=== PATIENT | female | born 1945 | race Caucasian/White ===

== ENCOUNTER 2020-02-15 09:43 | Outpatient (CLI) | payer MEDICARE, OTHER, SELFPAY ==
--- NOTE | 2020-02-15 09:56 | MM_ITS ---
WS: [id number] BILATERAL DIGITAL SCREENING MAMMOGRAPHY WITH CAD CLINICAL INFORMATION: SCREENING HISTORY: Screening mammogram. No current complaints. COMPARISON: None. TECHNIQUE: Bilateral CC and MLO views. FINDINGS: Scattered fibroglandular densities bilaterally. Increasing asymmetric density measuring 6 mm inferior left breast best seen on the MLO view. RECOMMEND SPOT COMPRESSION VIEWS AND ULTRASOUND LEFT BREAST MM/[place] [id number] IMPRESSION: BI-RADS: 0-Incomplete: Need additional imaging evaluation FOLLOW UP: Need Additional Imaging
== END 2020-02-15 09:44 | disposition home or self-care (01) ==
LOC: RADSHAW 09:49
PROVIDERS: PCP Internal Medicine; Visit Provider Internal Medicine
DX: Z12.31 Encounter for screening mammogram for malignant neoplasm of breast (principal); N64.89 Other specified disorders of breast
CPT/HCPCS: 77067

== ENCOUNTER 2020-03-13 10:19 | Outpatient (CLI) | payer MEDICARE, OTHER, SELFPAY ==
--- NOTE | 2020-03-13 10:27 | MM_ITS ---
WS: [id number] LEFT DIGITAL MAMMOGRAPHY WITH CAD CLINICAL INFORMATION: ABNORMAL MAMMOGRAM COMPARISON: February 15, 2020 TECHNIQUE: 3 views of the left breast were obtained. FINDINGS: Scattered fibroglandular densities of the left breast. Previously described 6 mm asymmetric density r esolves today on the spot compression views. No other suspicious findings. Recommend return to screen ing mammography. MM/[place] [id number] IMPRESSION: BI-RADS: 2-Benign FOLLOW UP: 1 Year Follow-up Recommend return to annual screening mammography.
== END 2020-03-13 10:20 | disposition home or self-care (01) ==
LOC: RADSHAW 10:23
PROVIDERS: PCP Internal Medicine; Visit Provider Nurse Practitioner Family
DX: R92.8 Other abnormal and inconclusive findings on diagnostic imaging of breast (principal)
CPT/HCPCS: 77065

== ENCOUNTER → 2020-12-19 10:13 | Outpatient (BNVA) | payer MEDICARE, OTHER, SELFPAY | PROVIDERS: PCP Internal Medicine; Visit Provider Surgery | DX: Z01.812 Encounter for preprocedural laboratory examination (principal); Z20.822 Contact with and (suspected) exposure to COVID-19 | CPT/HCPCS: 87635 ==

== ENCOUNTER 2020-12-25 09:24 | Day surgery (SDC) | payer MEDICARE, OTHER, SELFPAY ==
--- NOTE | 2020-12-25 09:45 | ANES.PREANE2 ---
Pre-Anesthetic Assessment Pre-Anesthetic Assessment: Height/Weight: Height 1.55 m Weight 81.647 kg Preop Diagnosis: screening colonoscopy Proposed Procedure: Operation Date: 12/25/20 11:00 Proposed Procedures p Colonoscopy 05307 Z12.11(Not Applicable) - Umang Sutton MD Was Beta Melva taken within 24 hours: Yes Was Clonidine taken within 24 hours: N/A Social: Social History: No alcohol and No tobacco Exam: Pre-Anes Outpt Exam: alert, oriented x 3, clear to auscultation bilaterally and regular rate & rhythm Airway: Submandibular: WNL Cervical ROM: WNL MP: 1 Pulmonary: Pulmonary: None reported CV/HEM: CV/HEM: HTN : : None reported Hepatic: Hepatic: None reported GI: GI: None reported Metabolic: Metabolic: DM Musc/skel: Musc/skel: None reported Neuropsych: Neuropsych: None reported Anesthetic Plan: ASA status: 3 Anesthesia: MAC PFSH Anesthesia PFSH: Medical History Diabetes HTN (hypertension), benign Surgical History History of 2 sections History of appendectomy History of open reduction and internal fixation (ORIF) procedure Right ankle History of tonsillectomy Status post colonoscopy Family History Mother Hyperlipidemia Denies family history of Diabetes CAD (coronary artery disease) Clotting disorder Dementia Psychiatric illness Chronic kidney disease (CKD) Suicide Anesthesia complication Bleeding disorder Family history of premature coronary artery disease Lung disease Cancer Hypertension Stroke Social History Smoking and tobacco status: never smoked Second hand smoke exposure: No Alcohol intake: never Data Anesthesia Cardiac Studies: No Data to Display
[2020-12-25 10:14] VITALS: BP 148/72; PULSE 78; RESP 18; TEMP 36.7; O2SAT 98
[2020-12-25] MEDS: sodium chloride 0.9% 1,000 ML 30 ML IV (10:28)
[2020-12-25 10:35] LABS: Glucose Point of Care 151 mg/dL (70-110)
--- NOTE | 2020-12-25 10:36 | W.PM.OPSUD ---
Surgery/Procedure H&P Update DATE OF PROCEDURE: December 25, 2020 DATE H&P PERFORMED: 12/02/20 H&P UPDATE INFORMATION: I have reviewed H&P completed within last 30 days, I have examined patient prior to procedure and No changes to prior documentation PREOP DIAGNOSIS: screening colonoscopy PLANNED PROCEDURE: Operation Date: 12/25/20 11:00 Proposed Procedures p Colonoscopy 33887 Z12.11(Not Applicable) - Umang Sutton MD
[2020-12-25 12:24] VITALS: BP 132/66; PULSE 73; RESP 12; TEMP 36.1; O2SAT 96
--- NOTE | 2020-12-25 12:28 | ANE.PACU2 ---
Inpatient post-anesthesia follow up: Airway intact: Yes Vital signs: Temperature 98.1 F Pulse Rate 78 Respiratory Rate 18 Blood Pressure 148/72 Pulse Oximetry 98 Oxygen Delivery Me thod Room Air Oxygen Flow Rate Fraction of Inspir ed Oxygen Hydration adequate: Yes Nausea and vomiting: No Pain level: 1 Mental status: Baseline
[2020-12-25 12:37] VITALS: BP 138/65; PULSE 76; RESP 18; O2SAT 95
== END 2020-12-25 13:07 | disposition home or self-care (01) ==
PROVIDERS: PCP Internal Medicine; Visit Provider Surgery
PROC: 0DJD8ZZ Inspection of Lower Intestinal Tract, Via Natural or Artificial Opening Endoscopic (ICD-10-PCS; CPT 45378; principal; 2020-12-25 11:00)
DX: Z12.11 Encounter for screening for malignant neoplasm of colon (principal); K64.8 Other hemorrhoids; I10 Essential (primary) hypertension; E11.9 Type 2 diabetes mellitus without complications; Z79.4 Long term (current) use of insulin
CPT/HCPCS: 36416; 82962; 96360; 96361; G0121; J2704; J7030

== ENCOUNTER 2021-01-29 10:49 | Outpatient (CLI) | payer MEDICARE, OTHER, SELFPAY ==
[2021-01-29 11:19] LABS: Hematocrit 28.8 % (37.0-47.0); Hemoglobin 7.8 g/dL (11.5-15.3); Mean Corpuscular HGB Conc 27.1 g/dL (30.0-36.0); Mean Corpuscular Hemoglobin 18.4 pg (28.0-34.0); Mean Corpuscular Volume 68.1 fL (81-99); Mean Platelet Volume 9.5 fL (7.4-10.4); Platelet Count 196 10^3/cmm (130-400); Red Blood Count 4.23 10^6/uL (4.1-5.3); Red Cell Distribution Width 19.5 % (12.1-15.1); Reticulocyte % 1.4 % (0.5-2.0)
[2021-01-29 11:42] LABS: Lactate Dehydrogenase 268 U/L (135-214)
[2021-01-29 12:06] LABS: Absolute Eosinophils 0.1 10^3/cmm (0.0-0.7); Absolute Segmented Neutrophil 2.8 10/cmm (1.6-7.1); Band Neutrophils Absolute 0.2 10^3/cmm (0.0-1.2); Eosinophils 3 %; Lymphocytes 17 %; Lymphocytes Absolute 0.7 10^3/cmm (1.2-3.4); Monocytes Absolute 0.2 10^3/cmm (0.1-0.6); Platelet Estimate Decreased (Normal); Segmented Neutrophils 69 %; Total Cells Counted 100 (0-100)
[2021-01-30 10:31] LABS: LAB Peripheral Smear Sent for Review
[2021-01-31 14:32] LABS: Anti-Nuclear Antibody Screen POSITIVE (NEGATIVE)
== END 2021-01-29 10:50 | disposition home or self-care (01) ==
PROVIDERS: PCP Internal Medicine; Visit Provider Internal Medicine
DX: D64.9 Anemia, unspecified (principal)
CPT/HCPCS: 83010; 83615; 85007; 85027; 85045; 86038

== ENCOUNTER 2021-02-12 11:25 | Outpatient (CLI) | payer MEDICARE, OTHER, SELFPAY ==
--- NOTE | 2021-02-12 11:33 | CT_ITS ---
WS: [id number] CT ABDOMEN PELVIS TECHNIQUE: Contrast-enhanced CT of the abdomen and pelvis with coronal and sagittal reformatted image s. CLINICAL INFORMATION: EPIGASTRIC ABDOMINAL PAIN COMPARISON: CT 12 2014 DLP: 1228.[address] scans at [facility] use at least one of these dose optimization techniques: automat ed exposure control; mA and/or kV adjustment per patient size (includes targeted exams where dose is matched to clinical indication); or iterative reconstruction. FINDINGS: Cirrhotic configuration to the liver. Splenomegaly. Spleen measures 14.6 cm [id number]. Enhancing e xophytic lesion anterior aspect of the spleen measuring 2.6 x 2.2 cm increased since 2015 where it me asured 1.9 x 1.4 CM. Mild to moderate abdominal ascites with perihepatic and perisplenic ascites. Mod erate ascites in the pelvis. Mesenteric edema. Diffuse gallbladder wall thickening likely due to cirr hosis. Moderate left pleural effusion with compressive atelectasis left lower lobe. Associated patchy infilt rates in the left lower lobe. Recommend correlation for pneumonia. Right lower lobe is well aerated. Markedly prominent and numerous periesophageal and gastroesophageal varices. This is progressed since 2015. Gastrosplenic varices. Portal vein and splenic vein are patent. Small esophageal hiatal hernia. No evidence of high-grade small or large bowel obstruction. Normal si gmoid colon. Mild fatty atrophy of the pancreas. Adrenal glands are normal. Normal renal parenchymal enhancement. No hydronephrosis. Tiny left renal cysts. Normal caliber abdominal aorta. No aneurysm. D iffuse body wall anasarca. Tiny fat-containing umbilical hernia. Abdominal wall varices. No abdominal or pelvic lymphadenopathy. No inguinal lymphadenopathy. Normal lumbar spine. CT/CT abdomen pelvis w con* [id number] IMPRESSION: 1. Cirrhotic liver with splenomegaly and evidence of portal venous hypertensio n with varices. 2. Tortuous and markedly prominent paraesophageal, retrocrural, gastroesophage al, and gastrosplenic varices. Small esophageal hiatal hernia. 3. Enhancing exophytic lesion in the anterior aspect of the spleen measuring 2 .6 x 2.2 cm described above increased in size since 2014. This may represent pr ominent hemangioma but nonspecific and a solid lesion is not excluded. This can be further evaluated with ultrasound. 4. Mild to moderate abdominal and pelvic ascites with perisplenic and perihepa tic fluid. 5. Moderate left pleural effusion with patchy infiltrates left lower lobe and compressive atelectasis.Correlation for pneumonia. 6. Normal caliber abdominal aorta. 7. Diffuse body wall anasarca.
[2021-02-12] MEDS: iohexol 300 mg/mL 50 mL Btl PO (11:57)
[2021-02-12] MEDS: iohexol 300 mg/mL 100 mL Btl IV (13:44)
== END 2021-02-12 11:26 | disposition home or self-care (01) ==
LOC: RADWPI 11:25
PROVIDERS: PCP Internal Medicine; Visit Provider Internal Medicine
DX: R10.13 Epigastric pain (principal); J90 Pleural effusion, not elsewhere classified; R18.8 Other ascites; K74.60 Unspecified cirrhosis of liver; R16.1 Splenomegaly, not elsewhere classified
CPT/HCPCS: 74177; Q9967

== ENCOUNTER 2021-02-17 13:49 | Outpatient (CLI) | payer MEDICARE, OTHER, SELFPAY ==
[2021-02-17 16:29] LABS: Basophils # 0.1 10^3/uL (0.0-0.1); Basophils % 1.4 %; Eosinophils # 0.2 10^3/uL (0.0-0.8); Eosinophils % 4.8 %; Hematocrit 30.3 % (37.0-47.0); Lymphocytes # 0.8 10^3/uL (0.8-4.8); Lymphocytes % 19.6 %; Mean Corpuscular HGB Conc 26.4 g/dL (30.0-36.0); Mean Corpuscular Hemoglobin 18.1 pg (28.0-34.0); Mean Corpuscular Volume 68.7 fL (81-99); Monocytes # 0.4 10^3/uL (0.2-0.9); Monocytes % 9.9 %; Neutrophils # 2.65 10^3/uL (1.8-7.7); Neutrophils % 64.1 %; Nucleated Red Blood Cells % 0 %; Platelet Count 185 10^3/cmm (130-400); Positive M 1; Red Blood Count 4.41 10^6/uL (4.1-5.3); Red Cell Distribution Width 21.7 % (12.1-15.1); White Blood Count 4.1 10^3/uL (4.0-10.0)
[2021-02-17 16:43] LABS: INR 1.08 (0.8-1.2)
[2021-02-17 16:50] LABS: Alanine Aminotransferase 10 U/L (0-33); Albumin Level 3.4 g/dL (3.5-5.2); Alkaline Phosphatase 76 IU/L (35-105); Aspartate Amino Transferase 32 U/L (0-32); Blood Urea Nitrogen 8 mg/dL (8-23); Calcium 8.5 mg/dL (8.5-10.5); Carbon Dioxide 21 mmol/L (22-29); Chloride 101 mmol/L (98-107); Ferritin 9 ng/mL (15-150); Globulin 3.2 g/dL (1.3-4.6); Glucose 164 mg/dL (65-115); Iron 17 ug/dL (37-145); Osmolality Calculated 282 mOsm/kg (285-295); Sodium 135 mmol/L (136-145); Total Bilirubin 0.9 mg/dL (0.15-1.2); Total Iron Binding Capacity 424 mcg/dl; Total Protein 6.6 g/dL (6.6-8.7); Unsaturated Iron Binding 407 ug/dL (112-347)
[2021-02-17 16:51] LABS: Anion Gap 16.8 (5-19); Potassium 3.8 mmol/L (3.5-5.1)
--- NOTE | 2021-02-17 17:11 | ONC CON_ITS ---
Dr. Soria New Patient Note Patient: Sammie Cr Unit #: [id number]: [id number] Dicatated By: Vamshi Soria M.D.Date of Visit: Feb 17, 2021 Onc MED New Patient/Consult Referring Physician: Dr. MAC BENNETT M.D. Chief Complaint: Anemia. History of Present Illness: This is a 76-year-old woman with iron deficiency anemia. She has hypertension, hyperlipidemia, type 2 diabetes, and hypothyroidism. She sees Dr. Bennett for primary care. In November she had been referred to Dr. Sutton due to complaints of persistent diarrhea. Her hemoglobin had dropped from 14 to 11 g. She was found to have heme positive stool. Her colonoscopy on 12/25/2020 showed no abnormalities. Her repeat CBC on 01/28/2021 showed further decrease in hemoglobin to 7.3 g with hematocrit 27.1%. The red cell indices were hypochromic/microcytic. Her comprehensive metabolic profile showed slightly elevated total bilirubin at 1.3 mg/dL. The liver enzymes were normal. Her repeat CBC on 02/03/2021 continue to show significant anemia with hemoglobin 7.7 g despite oral iron supplementation with ferrous sulfate. CT of the abdomen/pelvis on 02/12/2021 showed evidence of liver cirrhosis with associated splenomegaly and with associated periesophageal and gastroesophageal varices, progressed compared to previous study in 2015. There was mild to moderate abdominal ascites and moderate ascites in the pelvis. There was moderate left pleural effusion with compressive atelectasis of the left lower lobe. An enhancing exophytic lesion in the anterior aspect of the spleen measuring 2.6 x 2.2 cm was noted to have increased since 2015. She complained that she is very tired. She has limited activity. ECOG score is 2. Her appetite has not been good. She says she does not eat near which she used to. She has had weight loss in the range of 30 pounds. She does not have fever or night sweats. She has been having shortness of breath and she has nonproductive cough. She does not complain of chest pain. She has not been having nausea or abdominal pain she has no obvious acid reflux symptoms. She does have loose stools, and she complains that she cannot tell when she is going to have a bowel movement. She has not been aware of any blood in the stool. She has no complaints. She has no significant joint or bone pain. She does not complain of headache or dizziness. She does have some numbness/tingling in her toes. Past Medical History: Her medical history includes hyperlipidemia, hypertension, hypothyroidism, and type II diabetes. Past Surgical History: She had a colonoscopy on 12/25/2020. Her other surgical/procedural history includes appendectomy, section x 2, ORIF for right ankle fracture, and tonsillectomy. Medications: amLODIPine Besylate (5 mg) Tablet Oral daily, Benazepril HCl (40 mg) Tablet Oral daily, Euthyrox (125 mcg) Tablet Oral daily, Insulin Detemir 40 (100 Units/mL) Subcutaneous b.i.d., metFORMIN HCl (1000 mg) Tablet Oral b.i.d., Metoprolol Tartrate (25 mg) Tablet Oral daily Allergies: Adhesive Tape, Aspirin, and Penicillins. Social History: Ms. Cr is . She is a non-smoker. She does not drink alcohol. Family History: Father of heart attack at age 51. Mother is still living at age 98. She has 2 sisters, one of whom has Parkinson's disease. The other is in good health. Review Of Symptoms: Constitutional - She has been feeling very tired. She has limited activity. Her appetite is not been good. She has had gradual weight loss, which now is in excess of 30 pounds. She does not have fever or night sweats. ECOG score is 2, Eyes - No change in vision, ENMT - No hearing loss or tinnitus. No sinus congestion/drainage. No mouth sores. No sore throat or difficulty swallowing, Hematologic/Lymphatic - She bruises very easily, Respiratory - She has some shortness of breath. She has nonproductive cough. No pleuritic pain or hemoptysis, Cardiovascular - No angina pain. No palpitations, Gastrointestinal - No nausea or vomiting. No heartburn or acid reflux. She has had loose stools and recently she has been unable to tell when her bowels are going to move. She has not been aware of any blood in the stool, Genitourinary (F) - No dysuria or hematuria. No urinary frequency. No urgency or incontinence, Musculoskeletal - No significant joint or bone pain, Integumentary - No skin rash or other skin changes, Neurologic - No headache or dizziness. She has numbness/tingling in her toes. No other focal neurologic symptoms, Psychiatric - No anxiety or depression. No insomnia. Vital Signs: Performed on Feb 17, 2021 15:27: 3, 0, 31.82 (HIGH), 1.76 sq.m, 61 in, 96 %, 92 /min, 18 /min, 154/65 mm(hg) (HIGH), 97.7 F (LOW), and 168.4 lbs (HIGH). Physical Examination: Constitutional - She appears somewhat weak generally, Eyes - Sclerae nonicteric. Conjunctivae clear, ENMT - No lesions noted in the oral cavity, Neck - No mass or thyromegaly, Hematologic/Lymphatic - No cervical, clavicular, or axillary adenopathy, Respiratory - Lungs are clear with good air movement bilaterally, Cardiovascular - Heart rhythm is regular. There is a II/ systolic murmur. There is no gallop or rub noted, Abdomen - Moderately distended. There does appear to be some ascites. Liver does not appear enlarged. I am not able to palpate the spleen. There is no abdominal mass noted and there is no inguinal adenopathy, Back/Spine - No spine or CVA tenderness noted, Extremities - Mild lower extremity edema, Integumentary - No rashes. No suspicious skin lesions noted, Neurologic - No focal neurologic deficits noted. Problem List: 1. Hypochromic/microcytic anemia, consistent with iron deficiency. 2. CT evidence of cirrhosis of the liver. Etiology is unknown. 3. Hypertension. 4. Hyperlipidemia. 5. Type 2 diabetes. 6. Hypothyroidism. Problems Addressed with this Encounter and Plan: 1. Patient with hypochromic/microcytic anemia, consistent with iron deficiency. She has documented heme positive stool, consistent with GI blood loss. A specific source has not been determined. It is also uncertain to what extent inadequate oral iron absorption may also be a contributing factor. The anemia has not been correcting on oral iron supplementation. The laboratory findings were reviewed with the patient and we discussed the clinical implications. She will have additional laboratory studies today to include CBC, comprehensive metabolic profile, serum iron studies, and ferritin. If the serum iron studies are consistent with iron deficiency and there has not been a significant increase in her hemoglobin/hematocrit levels, she will be given parenteral iron replacement with Injectafer. She will have 1-month interval follow-up lab studies and visit. 2. She has CT evidence of cirrhosis of the liver with portal hypertension and esophageal varices. She will need to an EGD and, depending on the findings, she may require banding of the varices. As yet the cause for the cirrhosis has not been determined, and at some point she will likely need to see a shipper. In the meantime, I will recheck her pro time and I also will check a viral hepatitis profile. Signed By: Vamshi Soria M.D. <<Signature on File>>
[2021-02-17 20:47] LABS: Hepatitis A Antibody IgM Non-Reactive (Nonreactive); Hepatitis B Core AB, Total Non-Reactive (Nonreactive); Hepatitis B Surface AB 3.5 (11.5-1000); Hepatitis B Surface Antigen Non-Reactive (Nonreactive); Hepatitis C Virus Antibody Non-Reactive (Nonreactive)
== END 2021-02-17 13:50 | disposition home or self-care (01) ==
PROVIDERS: PCP Internal Medicine; Referring Provider Internal Medicine; Visit Provider Internal Medicine Medical Oncology
DX: D50.9 Iron deficiency anemia, unspecified (principal); I10 Essential (primary) hypertension; E78.5 Hyperlipidemia, unspecified; E11.9 Type 2 diabetes mellitus without complications; E03.9 Hypothyroidism, unspecified; Z79.899 Other long term (current) drug therapy; K74.60 Unspecified cirrhosis of liver
CPT/HCPCS: 36415; 80053; 82728; 83540; 83550; 85025; 85610; 86705; 86706; 86709; 86803; 87340; 99205

== ENCOUNTER 2021-02-20 06:00 | Outpatient (CLI) | payer MEDICARE, OTHER, SELFPAY ==
[2021-02-20] MEDS: sodium chloride 0.9% (100 ml) 100 ML 30 ML (08:51)
[2021-02-20] MEDS: ferric carboxy (IVPB) 750 MG in sodium chloride 0.9% (100 ml) 100 ML 460 MG IV (08:51)
== END 2021-02-20 06:01 | disposition home or self-care (01) ==
PROVIDERS: PCP Internal Medicine; Visit Provider Internal Medicine Medical Oncology
DX: D50.9 Iron deficiency anemia, unspecified (principal)
CPT/HCPCS: 96365; J1439

== ENCOUNTER 2021-02-26 06:23 | Outpatient (CLI) | payer MEDICARE, OTHER, SELFPAY ==
[2021-02-26] MEDS: sodium chloride 0.9% (100 ml) 100 ML 75 ML (15:19)
[2021-02-26] MEDS: ferric carboxy (IVPB) 750 MG in sodium chloride 0.9% (100 ml) 100 ML 460 MG IV (15:20)
== END 2021-02-26 06:24 | disposition home or self-care (01) ==
LOC: ONCMED 06:31
PROVIDERS: PCP Internal Medicine; Visit Provider Internal Medicine Medical Oncology
DX: D50.9 Iron deficiency anemia, unspecified (principal)
CPT/HCPCS: 96365; J1439

== ENCOUNTER 2021-03-31 13:49 | Outpatient (CLI) | payer MEDICARE, OTHER, SELFPAY ==
[2021-03-31 14:50] LABS: Basophils # 0.1 10^3/uL (0.0-0.1); Basophils % 1.3 %; Eosinophils # 0.5 10^3/uL (0.0-0.8); Eosinophils % 12.1 %; Hematocrit 40.9 % (37.0-47.0); Hemoglobin 12.4 g/dL (11.5-15.3); Lymphocytes % 22.3 %; Mean Corpuscular HGB Conc 30.3 g/dL (30.0-36.0); Mean Corpuscular Hemoglobin 25.5 pg (28.0-34.0); Mean Corpuscular Volume 84.2 fl (81-99); Monocytes # 0.4 10^3/uL (0.2-0.9); Monocytes % 9.6 %; Neutrophils # 2.44 10^3/uL (1.8-7.7); Neutrophils % 54.5 %; Nucleated Red Blood Cells % 0 %; Platelet Count 133 10^3/cmm (130-400); Red Blood Count 4.86 10^6/uL (4.1-5.3); White Blood Count 4.5 10^3/uL (4.0-10.0)
[2021-03-31 15:34] LABS: Ferritin 196 ng/mL (15-150); Iron 58 ug/dL (37-145); Percent Saturation 26.4 % (20-50); Total Iron Binding Capacity 219 mcg/dl; Unsaturated Iron Binding 161 ug/dL (112-347)
[2021-03-31 15:54] LABS: Add RBC Morph Yes; Slide Review Slide Review Perform
[2021-03-31 15:55] LABS: Anisocytosis 2+; Ovalocytes 2+; RBC Morph Comp Yes; Tear Drop Cells 1+
--- NOTE | 2021-04-01 07:26 | ONC FU_ITS ---
Dr. Soria Patient Follow-Up Note Patient: Sammie Cr Unit #: [id number]: 1945 Dicatated By: Vamshi Soria M.D.Date of Visit:Mar 31, 2021 Onc Med Follow-up/Prog Note Chief Complaint: Anemia. History of Present Illness: This is a 76-year-old woman with iron deficiency anemia. In November she had been referred to Dr. Sutton due to complaints of persistent diarrhea. Her hemoglobin had dropped from 14 to 11 g. She was found to have heme positive stool. Her colonoscopy on 12/25/2020 showed no abnormalities. Her repeat CBC on 01/28/2021 showed further decrease in hemoglobin to 7.3 g with hematocrit 27.1%. The red cell indices were hypochromic/microcytic. Her comprehensive metabolic profile showed slightly elevated total bilirubin at 1.3 mg/dL. The liver enzymes were normal. Her repeat CBC on 02/03/2021 continue to show significant anemia with hemoglobin 7.7 g despite oral iron supplementation with ferrous sulfate. CT of the abdomen/pelvis on 02/12/2021 showed evidence of liver cirrhosis with associated splenomegaly and with associated periesophageal and gastroesophageal varices, progressed compared to previous study in 2015. There was mild to moderate abdominal ascites and moderate ascites in the pelvis. There was moderate left pleural effusion with compressive atelectasis of the left lower lobe. An enhancing exophytic lesion in the anterior aspect of the spleen measuring 2.6 x 2.2 cm was noted to have increased since 2015. I had seen her initially on 02/17/2021. In the setting of iron deficiency anemia which was not correcting with oral iron, she was given parenteral iron replacement with 2 infusions of Injectafer. She tolerated the infusions with no adverse effects. Her other medical illnesses include hypertension, hyperlipidemia, type 2 diabetes, and hypothyroidism. She is a non-smoker. She is seen for a follow-up visit. She is feeling much better. She still has some fatigue, but there has been significant improvement in her energy and activity tolerance. ECOG score is 1. Her appetite also is better now. She does not have fever or night sweats. She still has a dry cough. She says her breathing is much better. She does not complain of chest pain. She currently has no GI or complaints. She has no significant joint or bone pain. She does not complain of headache or dizziness. She does have some numbness/tingling in her toes. Medications: amLODIPine Besylate (5 mg) Tablet Oral daily, Benazepril HCl (40 mg) Tablet Oral daily, Euthyrox (125 mcg) Tablet Oral daily, Insulin Detemir 40 (100 Units/mL) Subcutaneous b.i.d., Metoprolol Tartrate (25 mg) Tablet Oral daily Allergies: Adhesive Tape, Aspirin, and Penicillins. Vital Signs: Performed on Mar 31, 2021 15:25 Height - 61.00 in Weight - 155 lbs (LOW) BSA - 1.70 sq.m BMI - 29.29 Temperature - 97.7 F (LOW) Pulse - 67 /min Respiration - 18 /min BP - 169/68 mm(hg) (HIGH) O2 Sat - 97 % Pain - 0 Fatigue - 0 Physical Examination: Constitutional - She looks pretty good generally, Eyes - Sclerae nonicteric. Conjunctivae clear, ENMT - No lesions noted in the oral cavity, Hematologic/Lymphatic - No cervical, clavicular, or axillary adenopathy, Respiratory - Lungs are clear with good air movement bilaterally, Cardiovascular - Heart rhythm is regular. There is a II/ systolic murmur. There is no gallop or rub noted, Abdomen - Mildly distended but soft. There may be some ascites. Liver does not appear enlarged. Spleen is not palpable. There is no abdominal mass noted and there is no inguinal adenopathy, Extremities - Mild lower extremity edema,worse on the left. There are a few scattered purpuric lesions, Neurologic - No focal neurologic deficits noted. Lab/Imaging: Test performed on Mar 31, 2021 14:09 Ferritin 196 ng/mL Iron 58 mcg/dL Iron Binding Capacity (TIBC) 219 mcg/dl % Iron Saturation 26.4 % UIBC 161 mcg/dL WBC 4.5 10 3/uL RBC 4.86 10 6/uL Anisocytosis 2+ HGB 12.4 g/dL HCT 40.9 % MCV 84.2 fl MCH 25.5 pg MCHC 30.3 g/dL Platelet Count 133 10 3/cmm Neutrophils 2.44 10 3/uL Lymphocytes 1.0 10 3/uL Monocytes 0.4 10 3/uL Ovalocytes 2+ Eosinophils 0.5 10 3/uL Basophils 0.1 10 3/uL Neutrophil % 54.5 % Lymphocyte % 22.3 % Monocyte % 9.6 % Eosinophil % 12.1 % Basophils % 1.3 % Tear Drop Cells 1+ NRBC % 0 % CBC Slide Review Slide Review Perform Problem List: 1. Hypochromic/microcytic anemia, consistent with iron deficiency. 2. CT evidence of cirrhosis of the liver. Etiology is unknown. 3. Hypertension. 4. Hyperlipidemia. 5. Type 2 diabetes. 6. Hypothyroidism. Problems Addressed with this Encounter and Plan: 1. Patient with hypochromic/microcytic anemia, consistent with iron deficiency. She has documented heme positive stool, consistent with GI blood loss. A specific source has not been determined. It is also uncertain to what extent inadequate oral iron absorption may also be a contributing factor. As the anemia had not been correcting on oral iron supplementation, she was given parenteral iron replacement with 2 infusions of Injectafer, which she tolerated well. She has had a very good clinical response. She will now be followed with expectant management. I will see her again in 3 months, or sooner as needed. 2. She had CT evidence of cirrhosis of the liver with portal hypertension and esophageal varices. Further evaluation will be left to Dr. Fields's discretion. She may require additional GI evaluation, particularly if there is persistent GI blood loss. Signed By: Vamshi Soria M.D. <<Signature on File>>
== END 2021-03-31 13:50 | disposition home or self-care (01) ==
PROVIDERS: PCP Internal Medicine; Visit Provider Internal Medicine Medical Oncology
DX: D50.9 Iron deficiency anemia, unspecified (principal); I10 Essential (primary) hypertension; E78.5 Hyperlipidemia, unspecified; E11.9 Type 2 diabetes mellitus without complications; E03.9 Hypothyroidism, unspecified; Z79.899 Other long term (current) drug therapy
CPT/HCPCS: 36415; 82728; 83540; 83550; 85025; 99214

== ENCOUNTER → 2021-04-20 09:36 | Outpatient (BNVA) | payer MEDICARE, OTHER, SELFPAY | PROVIDERS: PCP Internal Medicine; Visit Provider Surgery | DX: Z20.822 Contact with and (suspected) exposure to COVID-19 (principal) | CPT/HCPCS: 87635 ==

== ENCOUNTER 2021-04-23 08:18 | Day surgery (SDC) | payer MEDICARE, OTHER, SELFPAY ==
[2021-04-21 10:32] VITALS: BMI 32.1
--- NOTE | 2021-04-23 08:49 | P.HP_ITS ---
Same Day Surgery H&P Indication for Procedure/HPI DATE OF PROCEDURE: April 23, 2021 CHIEF COMPLAINT/INDICATIONFOR SURGICAL PROCEDURE: egd PREOP DIAGNOSIS: upper gi symptoms PLANNED PROCEDRUE: Operation Date: 04/23/21 09:30 Proposed Procedures p EGD 04068 d50.9(Not Applicable) - Umang Sutton MD Medications/Allergies* Home Medications Medication Instructions Recorded Confirmed Type amlodipine 5 mg tablet 5 mg PO DAILY 12/02/20 04/21/21 History benazepril 40 mg tablet 40 mg PO DAILY 12/02/20 04/21/21 History insulin detemir U-100 100 unit/mL 30 unit SUBCUT BID 12/02/20 04/21/21 History (3 mL) subcutaneous pen metformin 1,000 mg tablet 500 mg PO DAILY 12/02/20 04/21/21 History metoprolol succinate 25 mg 25 mg PO BID 12/02/20 04/21/21 History tablet,extended release 24 hr potassium chloride 20 mEq/15 mL 20 meq PO DAILY 12/02/20 04/21/21 History oral liquid Allergies/Adverse Reactions Allergy/AdvReac Type Severity Reaction Status Date / Time aspirin [From Alanis Aspirin] Allergy Severe ADR-Gastrointestinal Verified 04/21/21 10:41 Upset adhesive tape Allergy Mild break out Verified 04/21/21 10:41 Penicillins Allergy Mild rash Verified 04/21/21 10:41 Pertinent History/Comorbid Conditions* Medical History (Updated 02/17/21 @ 10:59 by Umang Sutton MD) Cirrhosis of liver with ascites Diabetes HTN (hypertension), benign Surgical History (Updated 12/25/20 @ 12:24 by Umang Sutton MD) History of 2 sections History of appendectomy History of open reduction and internal fixation (ORIF) procedure Right ankle History of tonsillectomy Status post colonoscopy (12/25/20) Family History (Updated 12/02/20 @ 14:12 by Isabella More LPN) Hyperlipidemia Mother Denies family history of Diabetes CAD (coronary artery disease) Clotting disorder Dementia Psychiatric illness Chronic kidney disease (CKD) Suicide Anesthesia complication Bleeding disorder Family history of premature coronary artery disease Lung disease Cancer Hypertension Stroke Social History Smoking and tobacco status: never smoked Second hand smoke exposure: No Alcohol intake: never Pertinent Exam Findings alert, oriented x 3 and regular rate & rhythm Recommendations Surgery/Procedure today Coding Level of Care Code Acute Still Operator Helper for Chg Fwd
--- NOTE | 2021-04-23 08:51 | ANES.PREANE2 ---
Pre-Anesthetic Assessment Pre-Anesthetic Assessment: Height/Weight: Height 1.55 m Weight 77.111 kg Preop Diagnosis: upper gi symptoms Proposed Procedure: Operation Date: 04/23/21 09:30 Proposed Procedures p EGD 98895 d50.9(Not Applicable) - Umang Sutton MD Was Beta Melva taken within 24 hours: Yes Was Clonidine taken within 24 hours: N/A Social: Social History: No alcohol and No tobacco Exam: Pre-Anes Outpt Exam: alert, oriented x 3, clear to auscultation bilaterally and regular rate & rhythm Airway: Submandibular: WNL Cervical ROM: WNL MP: 2 Dentition: Chipped CV/HEM: CV/HEM: HTN Metabolic: Metabolic: DM Anesthetic Plan: ASA status: 3 Anesthesia: MAC Risk of > 500 ml blood loss (7ml/kg in children): No PFSH Anesthesia PFSH: Medical History (Updated 02/17/21 @ 10:59 by Umang Sutton MD) Cirrhosis of liver with ascites Diabetes HTN (hypertension), benign Surgical History History of 2 sections History of appendectomy History of open reduction and internal fixation (ORIF) procedure Right ankle History of tonsillectomy Status post colonoscopy (12/25/20) Family History Mother Hyperlipidemia Denies family history of Diabetes CAD (coronary artery disease) Clotting disorder Dementia Psychiatric illness Chronic kidney disease (CKD) Suicide Anesthesia complication Bleeding disorder Family history of premature coronary artery disease Lung disease Cancer Hypertension Stroke Social History Smoking and tobacco status: never smoked Second hand smoke exposure: No Alcohol intake: never Data Anesthesia Cardiac Studies: No Data to Display
[2021-04-23 09:02] VITALS: BP 175/85; PULSE 63; RESP 18; TEMP 36.4; O2SAT 97
[2021-04-23 09:25] LABS: Glucose Point of Care 171 mg/dL (70-110)
[2021-04-23] MEDS: sodium chloride 0.9% 1,000 ML 30 ML IV (09:25)
[2021-04-23 09:58] VITALS: BP 149/57; PULSE 70; RESP 16; TEMP 36.3; O2SAT 95
[2021-04-23 10:10] VITALS: BP 159/71; PULSE 67; RESP 18; TEMP 36.3; O2SAT 93
--- NOTE | 2021-04-23 14:01 | ANE.PACU2 ---
Inpatient post-anesthesia follow up: Airway intact: Yes Vital signs: Temperature 97.3 F Pulse Rate 67 Respiratory Rate 18 Blood Pressure 159/71 Pulse Oximetry 93 Oxygen Delivery Me thod Room Air Oxygen Flow Rate 4 Fraction of Inspir ed Oxygen Hydration adequate: Yes Nausea and vomiting: No Pain level: 1 Mental status: Baseline
== END 2021-04-23 10:30 | disposition home or self-care (01) ==
PROVIDERS: PCP Internal Medicine; Visit Provider Surgery
PROC: 0DJ08ZZ Inspection of Upper Intestinal Tract, Via Natural or Artificial Opening Endoscopic (ICD-10-PCS; CPT 43235; principal; 2021-04-23 09:30)
DX: D50.9 Iron deficiency anemia, unspecified (principal); K29.70 Gastritis, unspecified, without bleeding; E11.9 Type 2 diabetes mellitus without complications; I10 Essential (primary) hypertension
CPT/HCPCS: 36416; 43235; 82962; 96360; J2704; J7030

== ENCOUNTER 2021-07-07 10:54 | Outpatient (CLI) | payer MEDICARE, OTHER, SELFPAY ==
[2021-07-07 11:43] LABS: Basophils # 0.1 10^3/uL (0.0-0.1); Basophils % 1.3 %; Eosinophils # 0.3 10^3/uL (0.0-0.8); Hematocrit 45.9 % (37.0-47.0); Hemoglobin 14.9 g/dL (11.5-15.3); Lymphocytes # 0.9 10^3/uL (0.8-4.8); Lymphocytes % 20.4 %; Mean Corpuscular HGB Conc 32.5 g/dL (30.0-36.0); Mean Corpuscular Hemoglobin 29.9 pg (28.0-34.0); Mean Platelet Volume 10.7 fL (7.4-10.4); Monocytes # 0.3 10^3/uL (0.2-0.9); Monocytes % 7.5 %; Neutrophils # 2.91 10^3/uL (1.8-7.7); Neutrophils % 64.4 %; Nucleated Red Blood Cells % 0 %; Platelet Count 128 10^3/cmm (130-400); Red Blood Count 4.99 10^6/uL (4.1-5.3); White Blood Count 4.5 10^3/uL (4.0-10.0)
[2021-07-07 12:16] LABS: Alanine Aminotransferase 17 U/L (0-33); Albumin Level 3.7 g/dL (3.5-5.2); Alkaline Phosphatase 114 IU/L (35-105); Anion Gap 13.4 (5-19); Aspartate Amino Transferase 26 U/L (0-32); Blood Urea Nitrogen 11 mg/dL (8-23); Calcium 8.5 mg/dL (8.5-10.5); Carbon Dioxide 27 mmol/L (22-29); Chloride 102 mmol/L (98-107); Globulin 2.9 g/dL (1.3-4.6); Glucose 143 mg/dL (65-115); Osmolality Calculated 290 mOsm/kg (285-295); Potassium 3.4 mmol/L (3.5-5.1); Sodium 139 mmol/L (136-145); Total Bilirubin 1.2 mg/dL (0.15-1.2); Total Protein 6.6 g/dL (6.6-8.7)
[2021-07-07 14:35] LABS: Ferritin 132 ng/mL (15-150); Iron 89 ug/dL (37-145); Percent Saturation 31.3 % (20-50); Total Iron Binding Capacity 284 mcg/dl; Unsaturated Iron Binding 195 ug/dL (112-347)
--- NOTE | 2021-07-11 10:15 | ONC FU_ITS ---
Dr. Soria Patient Follow-Up Note Patient: Sammie Cr Unit #: [id number]: [id number] Dicatated By: Vamshi Soria M.D.Date of Visit:Jul 07, 2021 Onc Med Follow-up/Prog Note Chief Complaint: Anemia. History of Present Illness: This is a 76-year-old woman with iron deficiency anemia. In November she had been referred to Dr. Sutton due to complaints of persistent diarrhea. Her hemoglobin had dropped from 14 to 11 g. She was found to have heme positive stool. Her colonoscopy on 12/25/2020 showed no abnormalities. Her repeat CBC on 01/28/2021 showed further decrease in hemoglobin to 7.3 g with hematocrit 27.1%. The red cell indices were hypochromic/microcytic. Her comprehensive metabolic profile showed slightly elevated total bilirubin at 1.3 mg/dL. The liver enzymes were normal. Her repeat CBC on 02/03/2021 continue to show significant anemia with hemoglobin 7.7 g despite oral iron supplementation with ferrous sulfate. CT of the abdomen/pelvis on 02/12/2021 showed evidence of liver cirrhosis with associated splenomegaly and with associated periesophageal and gastroesophageal varices, progressed compared to previous study in 2015. There was mild to moderate abdominal ascites and moderate ascites in the pelvis. There was moderate left pleural effusion with compressive atelectasis of the left lower lobe. An enhancing exophytic lesion in the anterior aspect of the spleen measuring 2.6 x 2.2 cm was noted to have increased since 2014. I had seen her initially on 02/17/2021. Her hemoglobin at that point was still low at 8.0 g. In the setting of iron deficiency anemia which was not correcting with oral iron, she was given parenteral iron replacement with 2 infusions of Injectafer. She tolerated the infusions with no adverse effects. She had a good clinical response with her follow-up CBC on 03/31/2021 showing hemoglobin increased to 12.4 g. Her other medical illnesses include hypertension, hyperlipidemia, type 2 diabetes, and hypothyroidism. She is a non-smoker. She is seen for a follow-up visit. She has been feeling pretty good generally. Recently she has been a little more tired again, she has been doing light work at home. ECOG score is 1. She has good appetite. She has no fever or night sweats. She says her sinuses are sometimes stopped up, and she has not had sore mouth or throat and she does not complain of cough. She says that this morning it was a little hard for her to breathe. She otherwise has not had shortness of breath and she does not complain of chest pain. She still sometimes has pain in her epigastric area. She has no other GI or complaints. She says her bowels are more normal now. She has no significant joint or bone pain. She does not complain of headache or dizziness. She has some numbness in her toes. Medications: amLODIPine Besylate (5 mg) Tablet Oral daily, Benazepril HCl (40 mg) Tablet Oral daily, Euthyrox (125 mcg) Tablet Oral daily, Insulin Detemir 30 Unit(s) (of 100 Units/mL) Subcutaneous b.i.d., Metoprolol Tartrate (25 mg) Tablet Oral daily Allergies: Adhesive Tape, Aspirin, and Penicillins. Vital Signs: Performed on Jul 07, 2021 14:29 Height - 61.00 in Weight - 146.6 lbs (LOW) BSA - 1.66 sq.m BMI - 27.70 Temperature - 97.8 F (LOW) Pulse - 62 /min Respiration - 16 /min BP - 166/73 mm(hg) (HIGH) O2 Sat - 95 % (LOW) Pain - 3 Fatigue - 6 Physical Examination: Constitutional - She looks pretty good generally, Eyes - Sclerae nonicteric. Conjunctivae clear, ENMT - No lesions noted in the oral cavity, Hematologic/Lymphatic - No cervical, clavicular, or axillary adenopathy, Respiratory - Lungs are clear with good air movement bilaterally, Cardiovascular - Heart rhythm is regular. There is a II/ systolic murmur. There is no gallop or rub noted, Abdomen - Soft. Liver does not appear enlarged. Spleen is not palpable. There is no abdominal mass or ascites noted and there is no inguinal adenopathy, Extremities - Mild edema, Neurologic - No focal neurologic deficits noted. Lab/Imaging: Test performed on Jul 07, 2021 11:24 Ferritin 132 ng/mL Iron 89 mcg/dL Sodium 139 mmol/L Iron Binding Capacity (TIBC) 284 mcg/dl Potassium 3.4 mmol/L % Iron Saturation 31.3 % Chloride 102 mmol/L CO2 27 mmol/L UIBC 195 mcg/dL Anion Gap 13.4 BUN 11 mg/dL Creatinine 0.7 mg/dL Cr Clearance (Est) 74.02 mL/min Glucose 143 mg/dL Osmolality - Calculated 290 mOsm/kg Calcium 8.5 mg/dL Protein, Total 6.6 g/dL Albumin 3.7 g/dL Globulin 2.9 g/dL Bilirubin, Total 1.2 mg/dL ALT (SGPT) 17 U/L AST (SGOT) 26 U/L Alkaline Phosphatase 114 IU/L WBC 4.5 10 3/uL RBC 4.99 10 6/uL HGB 14.9 g/dL HCT 45.9 % MCV 92.0 fl MCH 29.9 pg MCHC 32.5 g/dL RDW 13.0 % Platelet Count 128 10 3/cmm MPV 10.7 fL Neutrophils 2.91 10 3/uL Lymphocytes 0.9 10 3/uL Monocytes 0.3 10 3/uL Eosinophils 0.3 10 3/uL Basophils 0.1 10 3/uL Neutrophil % 64.4 % Lymphocyte % 20.4 % Monocyte % 7.5 % Eosinophil % 6.0 % Basophils % 1.3 % NRBC % 0 % Problem List: 1. Hypochromic/microcytic anemia, consistent with iron deficiency. 2. CT evidence of cirrhosis of the liver. Etiology is unknown. 3. Hypertension. 4. Hyperlipidemia. 5. Type 2 diabetes. 6. Hypothyroidism. Problems Addressed with this Encounter and Plan: Patient with hypochromic/microcytic anemia, consistent with iron deficiency. She had documented heme positive stool, consistent with GI blood loss. A specific source was not determined. As the anemia had not been correcting on oral iron supplementation, she was given parenteral iron replacement with 2 infusions of Injectafer, which she tolerated well. She had a very good clinical response, and since then there has been further increase in her hemoglobin/hematocrit levels, now to 14.9 g and 45.9%. She can remain on expectant management. At this point she will discontinue her regular follow-up with Dr. Fields. I will see her again as needed. Signed By: Vamshi Soria M.D. <<Signature on File>>
== END 2021-07-07 10:55 | disposition home or self-care (01) ==
LOC: ONCMED 11:00
PROVIDERS: PCP Internal Medicine; Visit Provider Internal Medicine Medical Oncology
DX: D50.9 Iron deficiency anemia, unspecified (principal); K74.60 Unspecified cirrhosis of liver; I10 Essential (primary) hypertension; E78.5 Hyperlipidemia, unspecified; E11.9 Type 2 diabetes mellitus without complications; E03.9 Hypothyroidism, unspecified; Z79.899 Other long term (current) drug therapy
CPT/HCPCS: 36415; 80053; 82728; 83540; 83550; 85025; 99214

== ENCOUNTER 2021-11-24 15:23 | Outpatient (CLI) | payer MEDICARE, SELFPAY ==
--- NOTE | 2021-11-24 15:35 | MM_ITS ---
WS: [id number] VIEWS: MLO and CC views both breasts. 3D digital tomosynthesis is also included in this exam. Comparison made with prior exam of 03/06/2015, 09/09/2016, 10/27/2018, 02/15/2020.. Findings: There was no sign of mass, architectural distortion or suspicious calcification in either breast. Sc attered fibroglandular densities MM/[place] [id number] Impression: BI-RADS: 2-Benign FOLLOW-UP: 1 Year Follow-up This mammogram was also analyzed by the Computer Aided Detection System [employer].
== END 2021-11-24 15:24 | disposition home or self-care (01) ==
LOC: RADSHAW 15:27
PROVIDERS: PCP Internal Medicine; Visit Provider Internal Medicine
DX: Z12.31 Encounter for screening mammogram for malignant neoplasm of breast (principal)
CPT/HCPCS: 77063; 77067

== ENCOUNTER 2022-01-11 14:11 | Outpatient (CLI) | payer MEDICARE, SELFPAY ==
[2022-01-11 15:52] LABS: Basophils % 0.9 %; Eosinophils # 0.3 10^3/uL (0.0-0.8); Hematocrit 46.2 % (37.0-47.0); Lymphocytes # 0.8 10^3/uL (0.8-4.8); Lymphocytes % 19.2 %; Mean Corpuscular HGB Conc 32.5 g/dL (30.0-36.0); Mean Corpuscular Hemoglobin 29.7 pg (28.0-34.0); Mean Corpuscular Volume 91.5 fl (81-99); Mean Platelet Volume 11.5 fL (7.4-10.4); Monocytes # 0.4 10^3/uL (0.2-0.9); Monocytes % 8.5 %; Neutrophils # 2.71 10^3/uL (1.8-7.7); Neutrophils % 63.7 %; Nucleated Red Blood Cells % 0 %; Platelet Count 122 10^3/cmm (130-400); Red Blood Count 5.05 10^6/uL (4.1-5.3); Red Cell Distribution Width 12.6 % (12.1-15.1); White Blood Count 4.3 10^3/uL (4.0-10.0)
[2022-01-11 16:20] LABS: Alanine Aminotransferase 20 U/L (0-33); Albumin Level 3.8 g/dL (3.5-5.2); Alkaline Phosphatase 183 IU/L (35-105); Aspartate Amino Transferase 21 U/L (0-32); Blood Urea Nitrogen 18 mg/dL (8-23); Calcium 9.5 mg/dL (8.5-10.5); Carbon Dioxide 28 mmol/L (22-29); Chloride 93 mmol/L (98-107); Ferritin 108 ng/mL (15-150); Globulin 3.4 g/dL (1.3-4.6); Osmolality Calculated 306 mOsm/kg (285-295); Sodium 132 mmol/L (136-145); Total Protein 7.2 g/dL (6.6-8.7)
[2022-01-11 16:22] LABS: INR 1.03 (0.8-1.2)
[2022-01-11 16:25] LABS: Glucose 647 mg/dL (65-115)
[2022-01-11 16:38] LABS: Hepatitis B Core IgM Non-Reactive (Nonreactive); Hepatitis B Surface AB 3.5 (11.5-1000); Hepatitis B Surface Antigen Non-Reactive (Nonreactive); Hepatitis C Virus Antibody Non-Reactive (Nonreactive)
[2022-01-12 10:29] LABS: Alpha 1 Antitrypsin 151 mg/dL (83-199); Ceruloplasmin 28 mg/dL (18-53)
[2022-01-12 15:04] LABS: Sm/RNP Antibody <1.0 NEG AI (<1.0 NEG)
[2022-01-13 12:32] LABS: Anti-Nuclear Antibody Screen POSITIVE (NEGATIVE)
== END 2022-01-11 14:12 | disposition home or self-care (01) ==
PROVIDERS: PCP Internal Medicine; Visit Provider Dietitian, Registered
DX: K74.60 Unspecified cirrhosis of liver (principal)
CPT/HCPCS: 36415; 80053; 82103; 82105; 82390; 82728; 83516; 85025; 85610; 86038; 86235; 86705; 86706; 86803; 87340

== ENCOUNTER 2022-01-21 07:20 | Outpatient (CLI) | payer MEDICARE, SELFPAY ==
--- NOTE | 2022-01-21 07:30 | CT_ITS ---
WS: [id number] CT ABDOMEN AND PELVIS WITH CONTRAST HISTORY: ASCITES/EPIGASTRIC ABDOMINAL PAIN TECHNIQUE: Imaging performed of the abdomen and pelvis with IV contrast. Single phase imaging of the abdomen. Coronal and sagittal reformats are submitted. All CT scans at [facility] use at [address] one of these dose optimization techniques: automated exposure control; mA and/or kV adjustment per patient size (includes targeted exams where dose is matched to clinical indication); or iterative re construction. IV CONTRAST: Omnipaque 300; 95 mL IV. Oral contrast: No DLP: 1118.36 mGy.cm COMPARISON: 02/12/2021 Lower thorax: Lung bases are clear. Heart is normal size. There is are extensive paraesophageal varic es similar to the prior examination. Paraesophageal varices extends into the upper abdomen extending retrocrural, gastroesophageal and gastrosplenic. Liver/biliary system: Liver is cirrhotic with variable density. There is no discrete well-formed mass but the possibility of an infiltrating neoplasm cannot be excluded excluded. No bile duct dilatation . Portal vein is patent. Gallbladder: Normal. No gallstones or wall thickening. No pericholecystic fluid. Pancreas: Pancreas is normal size. No pancreatic duct dilatation. Along the posterior surface of the pancreas greatest involving the uncinate process is soft tissue stranding and infiltration within the fat. Spleen: Hyperechoic nodule from the anterior lateral spleen measures 2.0 cm and is unchanged since e prior study. Spleen measures 12.6 cm in length. Adrenal glands: RIGHT adrenal gland is normal. Normal size LEFT adrenal gland but there is stranding adjacent to the LEFT adrenal gland. Right kidney: Normal size kidneys. No obstruction. There are a few scattered hypodensities which aren 't difficult to characterize due to their small size. Left kidney: Normal size with no obstruction. Aorta: Mild atherosclerosis aorta. There is an area of fatty infiltration centered near the celiac axis and SMA with partial extension t o the aorta, LEFT adrenal gland and the posterior surface of the pancreas. Lymphadenopathy: None. Free fluid: None. GI tract: There is mild wall thickening involving the fundus of the stomach. No small bowel obstructi on. A small amount of inflammation does surround the distal duodenum. Prior appendectomy. No divertic ulitis. Abdominal wall: Unremarkable abdominal wall. No hernia. Pelvis: Small amount of free fluid in the pelvis. The uterus is anteverted and normal size for age. No adenopathy. Well-distended urinary bladder. Bones: Mild degenerative changes throughout the lumbar spine. Mild thoracolumbar scoliosis. CT/CT abdomen pelvis w con* [id number] IMPRESSION: 1. Acute appearing inflammatory changes in the upper abdomen at the level of t he pancreas and distal duodenum. The exact etiology is not apparent. Etiologies to consider are acute pancreatitis and duodenitis. The inflammation does exten d to involve the celiac axis and the LEFT adrenal gland. Cannot completely excl ude this is not a response to variceal bleeding or reaction to variceal thrombo sis. No thrombi are identified or occlusion of the varices. 2. Mild circumferential thickening fundus of the stomach. Early neoplasm not e xcluded. Patient may need follow-up evaluation or endoscopy. 3. Patient has significant paraesophageal, retrocrural, gastroesophageal and g astrosplenic varices. 4. Cirrhosis. Although no discrete mass is identified throughout the liver the re is variable density. 5. Portal hypertension.
[2022-01-21] MEDS: iohexol 300 mg/mL 50 mL Btl PO (08:42)
[2022-01-21] MEDS: iohexol 300 mg/mL 100 mL Btl IV (09:45)
== END 2022-01-21 07:21 | disposition home or self-care (01) ==
PROVIDERS: PCP Internal Medicine; Visit Provider Internal Medicine
DX: R18.8 Other ascites (principal); R10.13 Epigastric pain; K74.60 Unspecified cirrhosis of liver; K76.6 Portal hypertension
CPT/HCPCS: 74177

== ENCOUNTER 2022-04-16 06:00 | Outpatient (RCR) | payer MEDICARE, SELFPAY | END 2022-05-07 23:59 | disposition home or self-care (01) | LOC: SST 06:00 | PROVIDERS: PCP Internal Medicine; Visit Provider Internal Medicine | DX: R49.0 Dysphonia (principal) | CPT/HCPCS: 92524 ==

== ENCOUNTER 2022-10-20 10:50 | Emergency (ER) | payer MEDICARE, SELFPAY ==
[2022-10-20 10:55] VITALS: BP 166/75; PULSE 112; RESP 18; TEMP 36.4; O2SAT 98; BMI 31.4
--- NOTE | 2022-10-20 11:02 | W.ED.GIBLEED ---
Documented by User: PAULA Ewing 10/20/22 15:34 HPI - GI Bleed General: Chief complaint: GI Bleed Stated complaint: vomiting blood Time Seen by Provider: 10/20/22 10:54 Source: patient Mode of arrival: ambulatory Limitations: no limitations History of Present Illness: Patient is a 77-year-old female with a history of liver cirrhosis, portal hypertension with paraesophageal/gastroesophageal/gastrosplenic varices, diabetes, and HTN who presents to ED today with a complaint that she vomited bright red blood in the middle of the night last night. Just a single episode. She described as bright red blood and states it was a lot . Patient admittedly is not a very good historian. When asked, she does tell me she has had black tarry stools recently. When I mention the possibility for an endoscopy/colonoscopy she tells me that she had an EGD performed recently at [facility] (records obtained-10/[address] Salcido) in [place] stating that they tied off some things . Records do indicated three esophageal varies were banded. Most recent hemoglobin performed through Dr. Fields's office was 16.9 on 09/29. complaint: gross hematemesis and melena Onset (ago): hour(s) Relieving factors: none Exacerbating factors: none Context: history of GI bleed, liver disease and known esophageal varices Associated symptoms: Reports nausea and vomiting; Denies abdominal pain, chills, fever(s), headache(s), malaise or rash Treatments Prior to Arrival: none Review of Systems Const: Denies: fever(s), chills, body aches, fatigue or malaise Card: Denies: chest pain Resp: Denies: dyspnea GI: Reports: nausea, vomiting, hematemesis and melena; Denies: abdominal pain or change in bowel habits : Denies: flank pain, dysuria or hematuria Musc: Denies: neck pain, back pain, extremity pain or joint pain Skin/Breast: Denies: rash Neuro: Reports: other (weakness); Denies: headache(s), numbness in extremities, weakness in extremities or sensory changes PFS ED PFSH: Medical History Cirrhosis of liver with ascites Diabetes HTN (hypertension), benign Surgical History H/O esophagogastroduodenoscopy (04/23/21) History of 2 sections History of appendectomy History of open reduction and internal fixation (ORIF) procedure Right ankle History of tonsillectomy Status post colonoscopy (12/25/20) Family History Mother Hyperlipidemia Denies family history of Diabetes CAD (coronary artery disease) Clotting disorder Dementia Psychiatric illness Chronic kidney disease (CKD) Suicide Anesthesia complication Bleeding disorder Family history of premature coronary artery disease Lung disease Cancer Hypertension Stroke Social History Smoking and tobacco status: never smoked Second hand smoke exposure: No Alcohol intake: never Physical Exam Const: COMMON NORMALS: no acute distress, average body habitus, patient oriented x3, no limitations, healthy appearing, alert and well nourished GENERAL APPEARANCE: cooperative ORIENTATION/CONSCIOUSNESS: Yes awake, Yes oriented to person, Yes oriented to place and Yes oriented to time HENMT: COMMON NORMALS: normocephalic and atraumatic HEAD & SCALP: normal to inspection, normocephalic and atraumatic Eye: COMMON NORMALS: no scleral icterus Resp: COMMON NORMALS: normal respiratory effort and clear to auscultation bilaterally AUSCULTATION: clear to auscultation bilaterally Cardio: COMMON NORMALS: regular rhythm RATE: tachycardic RHYTHM: regular rhythm GI: COMMON NORMALS: Normal to inspection, nondistended, normoactive bowel sounds present, Soft to palpation, non-tender, No hepatosplenomegaly present and no masses PALPATION: Yes Soft to palpation and Yes No hepatosplenomegaly present RECTAL EXAM: heme positive stool Extremity: COMMON NORMALS: normal to inspection, capillary refill normal, no joint enlargement, no clubbing, cyanosis or edema, no calf tenderness and no pedal edema GENERAL: Yes normal exam except as noted Neuro: ECTOR COMA SCALE: document GCS findings [place] coma scale eye opening: Spontaneous [place] coma scale verbal response: Orientated [place] coma scale motor response: Obey commands [place] coma scale total score: 15 COMMON NORMALS: patient oriented x3, moves all extremities, no focal motor deficits and no sensory deficits noted SENSORIUM/ORIENTATION: Yes alert, Yes oriented to person, Yes oriented to place and Yes oriented to time Skin: COMMON NORMALS: no rashes or lesions noted GENERAL SKIN EXAM: no rashes or lesions noted Course Consultations: Consultation #1: Dr. Dean HASSAN-recommends transfer for urgent EGD and banding procedure if needed Vital Signs: Vital signs: Vital Signs Temperature 97.6 F 10/20/22 10:55 Pulse Rate 83 10/20/22 14:44 Respiratory Rate 13 10/20/22 14:44 Blood Pressure 152/72 10/20/22 14:44 Pulse Oximetry 95 10/20/22 14:44 Oxygen Delivery Me thod 10/20/22 14:44 MDM - GI Bleed Medical Decision Making Patient is a 77-year-old female with a history of HUMPHREYS/liver cirrhosis/portal hypertension with extensive history of paraesophageal, retrocrural, gastroesophageal, and gastric splenic varices with many of these having to be banded. She presents today with one episode of acute hematemesis occurring in the middle of the night. She has not had any further episodes while here. She does have a positive stool Hemoccult. Vital signs are stable. Orthostatics show normal blood pressure responses but she does have an increase in HR of 33 bpm. Initial blood work showing a hemoglobin of 13.3 (most recent was 16.9 on 09/29). This was repeated about 3 hours later and it is 12.2. I spoke to Roe HASSAN (tried to get her surgeon originally but she was not on-call) who recommended urgent transfer for EGD. Roe unfortunately does not have any availability at this time. We have tried multiple hospitals at this time without success. Care will be transferred to Dr. Howard. Lab Data 10/20/22 11:19 10/20/22 11:19 Laboratory Results WBC 6.1 10^3/uL (4.0-10.0) 10/20/22 11:19 RBC 4.56 10^6/uL (4.1-5.3) 10/20/22 11:19 Hgb 11.9 g/dL (11.5-15.3) 10/20/22 16:59 Hct 38.7 % (37.0-47.0) 10/20/22 14:01 MCV 89.0 fl (81-99) 10/20/22 11:19 MCH 29.2 pg (28.0-34.0) 10/20/22 11:19 MCHC 32.8 g/dL (30.0-36.0) 10/20/22 11:19 RDW 12.5 % (12.1-15.1) 10/20/22 11:19 Plt Count 141 10^3/cmm (130-400) 10/20/22 11:19 MPV 11.1 fL (7.4-10.4) H 10/20/22 11:19 Neut % (Auto) 72.1 % 10/20/22 11:19 Lymph % (Auto) 17.3 % 10/20/22 11:19 Vilas % (Auto) 7.8 % 10/20/22 11:19 Eos % (Auto) 1.3 % 10/20/22 11:19 Baso % (Auto) 0.7 % 10/20/22 11:19 Neut # (Auto) 4.42 10^3/uL (1.8-7.7) 10/20/22 11:19 Lymph # (Auto) 1.1 10^3/uL (0.8-4.8) 10/20/22 11:19 Vilas # (Auto) 0.5 10^3/uL (0.2-0.9) 10/20/22 11:19 Eos # (Auto) 0.1 10^3/uL (0.0-0.8) 10/20/22 11:19 Baso # (Auto) 0.0 10^3/uL (0.0-0.1) 10/20/22 11:19 Nucleated RBC % (auto) 0 % 10/20/22 11:19 Nucleated RBCs # 0.0 /100WBC 10/20/22 11:19 PT 14.40 SECONDS (12.1-14.9) 10/20/22 11:19 INR 1.09 (0.8-1.2) 10/20/22 11:19 APTT 29.7 SECONDS (23.9-36.7) 10/20/22 11:19 Sodium 143 mmol/L (136-145) 10/20/22 16:59 Potassium 4.8 mmol/L (3.5-5.1) 10/20/22 16:59 Chloride 106 mmol/L (98-107) 10/20/22 16:59 Carbon Dioxide 28 mmol/L (22-29) 10/20/22 16:59 Anion Gap 13.8 (5-19) 10/20/22 16:59 BUN 46 mg/dL (8-23) H 10/20/22 16:59 Creatinine 0.8 mg/dL (0.5-0.9) 10/20/22 16:59 GFR Calculation Not Reportable 10/20/22 16:59 Glucose 329 mg/dL (65-115) H 10/20/22 16:59 Calculated Osmolality 321 mOsm/kg (285-295) H 10/20/22 16:59 Calcium 9.2 mg/dL (8.5-10.5) 10/20/22 16:59 Total Bilirubin 1.2 mg/dL (0.15-1.2) 10/20/22 11:19 AST 16 U/L (0-32) 10/20/22 11:19 ALT 15 U/L (0-33) 10/20/22 11:19 Alkaline Phosphatase 83 U/L (35-105) 10/20/22 11:19 Total Protein 6.2 g/dL (6.6-8.7) L 10/20/22 11:19 Albumin 3.4 g/dL (3.5-5.2) L 10/20/22 11:19 Globulin 2.8 g/dL (1.3-4.6) 10/20/22 11:19 Lipase 25 U/L (13-60) 10/20/22 11:19 Blood Type O Positive 10/20/22 15:07 Rho(D) Type Positive 10/20/22 15:07 Antibody Screen TNP 10/20/22 15:07 PEG Antibody Screen Negative 10/20/22 15:07 Discharge Plan Discharge Patient Disposition: Xfer Short-Term Hosp Clinical Impression: Esophageal and gastric varices, Cirrhosis of liver, Portal hypertension, Hematemesis, Acute upper GI bleed Condition: Stable Referrals: Evelin Fields MD [Primary Care Provider] - Sign Out Sign Out Data: Patient Sign Out occurred on 10/20/22 at 15:54. Patient's care was discussed, and care was transferred from to Guy Howard DO. Coding Level of Care Code ED Cardiothoracic Surgeon for Chg Fwd Documented by User: Guy Howard DO 10/21/22 06:42 HPI - GI Bleed General: Chief complaint: GI Bleed Stated complaint: vomiting blood Time Seen by Provider: 10/20/22 10:54 PFSH ED PFSH: Medical History Cirrhosis of liver with ascites Diabetes HTN (hypertension), benign Surgical History H/O esophagogastroduodenoscopy (04/23/21) History of 2 sections History of appendectomy History of open reduction and internal fixation (ORIF) procedure Right ankle History of tonsillectomy Status post colonoscopy (12/25/20) Family History Mother Hyperlipidemia Denies family history of Diabetes CAD (coronary artery disease) Clotting disorder Dementia Psychiatric illness Chronic kidney disease (CKD) Suicide Anesthesia complication Bleeding disorder Family history of premature coronary artery disease Lung disease Cancer Hypertension Stroke Social History Smoking and tobacco status: never smoked Second hand smoke exposure: No Alcohol intake: never Physical Exam Neuro: ECTOR COMA SCALE: document GCS findings [place] coma scale total score: 15 Course Vital Signs: Vital signs: Vital Signs Temperature 97.6 F 10/20/22 10:55 Pulse Rate 83 10/20/22 14:44 Respiratory Rate 13 10/20/22 14:44 Blood Pressure 152/72 10/20/22 14:44 Pulse Oximetry 95 10/20/22 14:44 Oxygen Delivery Me thod 10/20/22 14:44 MDM - GI Bleed Medical Decision Making Patient is a 77-year-old female with a history of HUMPHREYS/liver cirrhosis/portal hypertension with extensive history of paraesophageal, retrocrural, gastroesophageal, and gastric splenic varices with many of these having to be banded. She presents today with one episode of acute hematemesis occurring in the middle of the night. She has not had any further episodes while here. She does have a positive stool Hemoccult. Vital signs are stable. Orthostatics show normal blood pressure responses but she does have an increase in HR of 33 bpm. Initial blood work showing a hemoglobin of 13.3 (most recent was 16.9 on 09/29). This was repeated about 3 hours later and it is 12.2. I spoke to Roe HASSAN (tried to get her surgeon originally but she was not on-call) who recommended urgent transfer for EGD. Roe unfortunately does not have any availability at this time. We have tried multiple hospitals at this time without success. Care will be transferred to Dr. Howard. Care assumed from Zhane Mitchell. We were able to secure transportation for the patient to [facility] where they do have GI services patient remained stable here. Discussed with GI and hospitalist there is a excepted patient for transfer transfer via [facility] in stable condition Medical Records I reviewed the patient's medical records. Lab Data I reviewed the patient's lab results. 10/20/22 11:19 10/20/22 11:19 Laboratory Results WBC 6.1 10^3/uL (4.0-10.0) 10/20/22 11:19 RBC 4.56 10^6/uL (4.1-5.3) 10/20/22 11:19 Hgb 11.9 g/dL (11.5-15.3) 10/20/22 16:59 Hct 38.7 % (37.0-47.0) 10/20/22 14:01 MCV 89.0 fl (81-99) 10/20/22 11:19 MCH 29.2 pg (28.0-34.0) 10/20/22 11:19 MCHC 32.8 g/dL (30.0-36.0) 10/20/22 11:19 RDW 12.5 % (12.1-15.1) 10/20/22 11:19 Plt Count 141 10^3/cmm (130-400) 10/20/22 11:19 MPV 11.1 fL (7.4-10.4) H 10/20/22 11:19 Neut % (Auto) 72.1 % 10/20/22 11:19 Lymph % (Auto) 17.3 % 10/20/22 11:19 Vilas % (Auto) 7.8 % 10/20/22 11:19 Eos % (Auto) 1.3 % 10/20/22 11:19 Baso % (Auto) 0.7 % 10/20/22 11:19 Neut # (Auto) 4.42 10^3/uL (1.8-7.7) 10/20/22 11:19 Lymph # (Auto) 1.1 10^3/uL (0.8-4.8) 10/20/22 11:19 Vilas # (Auto) 0.5 10^3/uL (0.2-0.9) 10/20/22 11:19 Eos # (Auto) 0.1 10^3/uL (0.0-0.8) 10/20/22 11:19 Baso # (Auto) 0.0 10^3/uL (0.0-0.1) 10/20/22 11:19 Nucleated RBC % (auto) 0 % 10/20/22 11:19 Nucleated RBCs # 0.0 /100WBC 10/20/22 11:19 PT 14.40 SECONDS (12.1-14.9) 10/20/22 11:19 INR 1.09 (0.8-1.2) 10/20/22 11:19 APTT 29.7 SECONDS (23.9-36.7) 10/20/22 11:19 Sodium 143 mmol/L (136-145) 10/20/22 16:59 Potassium 4.8 mmol/L (3.5-5.1) 10/20/22 16:59 Chloride 106 mmol/L (98-107) 10/20/22 16:59 Carbon Dioxide 28 mmol/L (22-29) 10/20/22 16:59 Anion Gap 13.8 (5-19) 10/20/22 16:59 BUN 46 mg/dL (8-23) H 10/20/22 16:59 Creatinine 0.8 mg/dL (0.5-0.9) 10/20/22 16:59 GFR Calculation Not Reportable 10/20/22 16:59 Glucose 329 mg/dL (65-115) H 10/20/22 16:59 Calculated Osmolality 321 mOsm/kg (285-295) H 10/20/22 16:59 Calcium 9.2 mg/dL (8.5-10.5) 10/20/22 16:59 Total Bilirubin 1.2 mg/dL (0.15-1.2) 10/20/22 11:19 AST 16 U/L (0-32) 10/20/22 11:19 ALT 15 U/L (0-33) 10/20/22 11:19 Alkaline Phosphatase 83 U/L (35-105) 10/20/22 11:19 Total Protein 6.2 g/dL (6.6-8.7) L 10/20/22 11:19 Albumin 3.4 g/dL (3.5-5.2) L 10/20/22 11:19 Globulin 2.8 g/dL (1.3-4.6) 10/20/22 11:19 Lipase 25 U/L (13-60) 10/20/22 11:19 Blood Type O Positive 10/20/22 15:07 Rho(D) Type Positive 10/20/22 15:07 Antibody Screen TNP 10/20/22 15:07 PEG Antibody Screen Negative 10/20/22 15:07 Discharge Plan Discharge Patient Disposition: Xfer Short-Term Hosp Clinical Impression: Esophageal and gastric varices, Cirrhosis of liver, Portal hypertension, Hematemesis, Acute upper GI bleed Condition: Stable Referrals: Evelin Fields MD [Primary Care Provider] - Sign Out Sign Out Data: Patient Sign Out occurred on 10/20/22 at 15:54. Patient's care was discussed, and care was transferred from to Guy Howard DO. Coding Level of Care Code ED Cardiothoracic Surgeon for [place]leeg Alin
--- NOTE | 2022-10-20 11:15 | ECG_ITS ---
[facility] Test Date: 2022-10-20 Pat Name: Sammie Cr Department: Room: Gender: Female [employer]: : 1945 Requested By: Guy Ivey Order Number: [id number] Reading MD: ELIZABET SEGUNDO Measurements Intervals [place] Rate: 99 P: 22 PA: 187 QRS: 245 QRSD: 114 T: 3 QT: 371 QTc: 478 Interpretive Statements SINUS RHYTHM INCOMPLETE RIGHT BUNDLE BRANCH BLOCK [90+ ms QRS DURATION, TERMINAL R IN V1/V2, 40+ ms S IN I/aVL/V4/V5/V6] ANTEROLATERAL MYOCARDIAL INFARCTION , OF INDETERMINATE AGE [40+ ms Q WAVE IN I/aVL/V3-V6] No previous ECG available for comparison Electronically Signed On 10-20-2022 20:33:09 CDT by ELIZABET SEGUNDO [id number]
[2022-10-20 11:31] LABS: Basophils % 0.7 %; Eosinophils # 0.1 10^3/uL (0.0-0.8); Eosinophils % 1.3 %; Hematocrit 40.6 % (37.0-47.0); Hemoglobin 13.3 g/dL (11.5-15.3); Lymphocytes # 1.1 10^3/uL (0.8-4.8); Lymphocytes % 17.3 %; Mean Corpuscular HGB Conc 32.8 g/dL (30.0-36.0); Mean Corpuscular Hemoglobin 29.2 pg (28.0-34.0); Mean Platelet Volume 11.1 fL (7.4-10.4); Monocytes # 0.5 10^3/uL (0.2-0.9); Monocytes % 7.8 %; Neutrophils # 4.42 10^3/uL (1.8-7.7); Neutrophils % 72.1 %; Nucleated Red Blood Cells % 0 %; Platelet Count 141 10^3/cmm (130-400); Red Blood Count 4.56 10^6/uL (4.1-5.3); Red Cell Distribution Width 12.5 % (12.1-15.1); White Blood Count 6.1 10^3/uL (4.0-10.0)
[2022-10-20 11:41] LABS: INR 1.09 (0.8-1.2)
[2022-10-20 11:42] LABS: Partial Thromboplastin Time 29.7 SECONDS (23.9-36.7)
[2022-10-20 11:50] LABS: Alanine Aminotransferase 15 U/L (0-33); Albumin Level 3.4 g/dL (3.5-5.2); Alkaline Phosphatase 83 U/L (35-105); Anion Gap 19.2 (5-19); Aspartate Amino Transferase 16 U/L (0-32); Blood Urea Nitrogen 47 mg/dL (8-23); Calcium 9.4 mg/dL (8.5-10.5); Carbon Dioxide 22 mmol/L (22-29); Chloride 100 mmol/L (98-107); Globulin 2.8 g/dL (1.3-4.6); Glucose 432 mg/dL (65-115); Lipase 25 U/L (13-60); Osmolality Calculated 315 mOsm/kg (285-295); Potassium 4.2 mmol/L (3.5-5.1); Sodium 137 mmol/L (136-145); Total Bilirubin 1.2 mg/dL (0.15-1.2); Total Protein 6.2 g/dL (6.6-8.7)
[2022-10-20 11:55] VITALS: BP 120/73; BP 122/71; BP 138/64
[2022-10-20] MEDS: sodium chloride 0.9% 1,000 ML 999 ML IV (11:57)
[2022-10-20 11:58] VITALS: PULSE 115; PULSE 82; PULSE 93
[2022-10-20] MEDS: octreotide 100 mcg/mL SDV 50 MCG IVP (12:46)
[2022-10-20] MEDS: pantoprazole 40 mg SDV IVP (13:35)
[2022-10-20 14:24] LABS: Hematocrit 38.7 % (37.0-47.0); Hemoglobin 12.2 g/dL (11.5-15.3)
[2022-10-20 14:44] VITALS: BP 152/72; PULSE 83; RESP 13; O2SAT 95
[2022-10-20] MEDS: sodium chlor 0.9% + KCl 20 mEq 20 MEQ/1,000 ML BAG 125 MEQ IV (16:42)
[2022-10-20 17:12] LABS: Hemoglobin 11.9 g/dL (11.5-15.3)
[2022-10-20 17:34] LABS: Anion Gap 13.8 (5-19); Blood Urea Nitrogen 46 mg/dL (8-23); Calcium 9.2 mg/dL (8.5-10.5); Carbon Dioxide 28 mmol/L (22-29); Chloride 106 mmol/L (98-107); Glucose 329 mg/dL (65-115); Osmolality Calculated 321 mOsm/kg (285-295); Potassium 4.8 mmol/L (3.5-5.1); Sodium 143 mmol/L (136-145)
== END 2022-10-20 17:41 | disposition short-term general hospital (02) ==
PROVIDERS: Physician Assistant; Emergency Provider Family Medicine; PCP Internal Medicine
DX: K74.60 Unspecified cirrhosis of liver (principal); I85.10 Secondary esophageal varices without bleeding; I86.4 Gastric varices; K76.6 Portal hypertension; K92.0 Hematemesis; E11.9 Type 2 diabetes mellitus without complications; I10 Essential (primary) hypertension
CPT/HCPCS: 36415; 80048; 80053; 83690; 85014; 85018; 85025; 85610; 85730; 86850; 86900; 93005; 96365; 96375; 99284; C9113; J2354; J3480; J7030

== ENCOUNTER 2022-10-29 07:20 | Outpatient (CLI) | payer MEDICARE, SELFPAY ==
--- NOTE | 2022-10-29 07:32 | US_ITS ---
WS: [id number] ABDOMINAL ULTRASOUND LIMITED REASON FOR EXAM: UNSPECIIFIED CIRRHOSIS OF LIVER COMPARISON: None available. ORDER DATE: 10/29/2022 7:40 AM TECHNIQUE: Grayscale and Doppler ultrasound examination of the abdomen. FINDINGS: Pancreas: Unremarkable as partially visualized Abdominal aorta and IVC: 1.5 cm aortic diameter 1.4 cm IVC diameter Liver: Liver measures 13.2 cm in length. Course echotexture no bile duct dilatation Gallbladder: Gallbladder wall thickness measures 0.2 mm. Common bile duct diameter 6 mm Right kidney: Right kidney measures 11.4 cm x 5.2 cm x 5.2 cm. Right kidney cortex measures 1.0 cm. N ormal echotexture Duplex imaging demonstrating normal flow in the portal vein and right kidney US/US abdomen limited [id number] IMPRESSION: Coarse echotexture of the liver suspicious for chronic liver disease.
== END 2022-10-29 07:21 | disposition home or self-care (01) ==
LOC: RAD 07:23
PROVIDERS: PCP Internal Medicine; Visit Provider Internal Medicine
DX: K74.60 Unspecified cirrhosis of liver (principal)
CPT/HCPCS: 76705

== ENCOUNTER 2023-05-13 10:12 | Outpatient (CLI) | payer MEDICARE, SELFPAY ==
--- NOTE | 2023-05-13 10:24 | MM_ITS ---
WS: [id number] SCREENING DIGITAL TOMOSYNTHESIS MAMMOGRAM WITH CAD HISTORY: SCREENING COMPARISON: 11/24/2021, 02/15/2020 Bilateral CC and MLO with tomosynthesis views submitted. Synthetic mammography reviewed. Computer aid ed detection analyzed. Breast composition: There are scattered areas of fibroglandular density. No suspicious masses, microc alcifications or architectural distortion. Benign calcifications central RIGHT breast. IMPRESSION: MM/[place] [id number] BI-RADS: 2-Benign FOLLOW UP: 1 Year Follow-up
== END 2023-05-13 10:13 | disposition home or self-care (01) ==
PROVIDERS: PCP Internal Medicine; Visit Provider Internal Medicine
DX: Z12.31 Encounter for screening mammogram for malignant neoplasm of breast (principal)
CPT/HCPCS: 77063; 77067

== ENCOUNTER 2024-02-24 13:43 | Outpatient (CLI) | payer MEDICARE, SELFPAY ==
--- NOTE | 2024-02-24 13:51 | XR_ITS ---
WS: [id number] SCREENING DEXA SCAN [facility] CLINICAL INFORMATION: ASYMPTOMIC POSTMENOPAUSAL STATUS COMPARISON: None. FINDINGS: The L1-L4 bone mineral density measures 1.001 g/cm2. This corresponds to a T score score of -1.5 and Z score of -0.1. Left femoral neck bone mineral density measures 0.656 g/cm2. This corresponds to a T score of -2.8 an d Z score of -1.2. Right femoral neck bone mineral density measures 0.696 g/cm2. This corresponds to a T score -2.5of an d Z score of -0.9. Mean femoral neck bone mineral density measures 0.676 g/cm2. This corresponds to a T score of -2.6 an d Z score of -1.1. XR/XR DEXA axial skeleton* [id number] IMPRESSION: Osteopenia lumbar spine. Osteoporosis femoral necks Patient's FRAX calculated 10 year probability for major osteoporotic fracture i s 53.7 % and osteoporotic hip fracture is 44.1 %.
== END 2024-02-24 13:44 | disposition home or self-care (01) ==
LOC: RAD 13:43
PROVIDERS: PCP Internal Medicine; Visit Provider Internal Medicine
DX: Z78.0 Asymptomatic menopausal state (principal); M85.88 Other specified disorders of bone density and structure, other site; M81.8 Other osteoporosis without current pathological fracture
CPT/HCPCS: 77080